=== PATIENT | female | born 1960 | race African-American/Black ===

== ENCOUNTER 2017-03-30 10:54 | Emergency (ER) | payer OTHER ==
[2017-03-30] MEDS ORDERED: ONDANSETRON 4 MG/2 ML VIAL IVPUSH ONE ×2 (11:12→13:21)
[2017-03-30] MEDS ORDERED: SODIUM CHLORIDE 1,000 ML IV STA ×2 (11:22→13:21)
[2017-03-30 11:28] VITALS: BMI 19.3
--- NOTE | 2017-03-30 11:36 | PDOC ---
History of Present Illness - General Chief Complaint: Nausea/Vomiting Stated Complaint: VOMITING Time Seen by Provider: 03/30/17 11:11 History Source: Patient - History of Present Illness Timing/Duration: reports: other (last night) Abdominal Pain Onset Location: reports: generalized abdomen Past History - Past Medical History Allergies/Adverse Reactions: Allergies Allergy/AdvReac Type Severity Reaction Status Date / Time ibuprofen [From Motrin] Allergy Verified 03/30/17 11:26 Home Medications: Ambulatory Orders Ondansetron HCl [Zofran] 4 mg PO Q8H #15 tablet 03/30/17 Cancer: Yes (lung stage 3 on remission.) COPD: No - Suicide/Smoking/Psychosocial Hx Smoking History: Never smoked Have you smoked in the past 12 months: No Information on smoking cessation initiated: No Hx Alcohol Use: No Drug/Substance Use Hx: Yes (marijuana) Substance Use Type: Marijuana Review of Systems - Review of Systems Constitutional: No: Chills, Fever ABD/GI: Yes: Diarrhea, Nausea, Vomiting, Abdominal cramping : No: Dysuria *Physical Exam - Vital Signs Last Vital Signs Temp Pulse Resp BP Pulse Ox 97.5 F L 95 H 18 172/87 100 03/30/17 10:54 03/30/17 10:54 03/30/17 10:54 03/30/17 10:54 03/30/17 10:54 - Physical Exam General Appearance: Yes: Appropriately Dressed, Moderate Distress HEENT: positive: Normal Voice Neck: positive: Supple Respiratory/Chest: positive: Lungs Clear, Normal Breath Sounds. negative: Respiratory Distress Cardiovascular: positive: Regular Rate, S1, S2 Gastrointestinal/Abdominal: positive: Tender (poorly localized tenderness on exam) Musculoskeletal: negative: CVA Tenderness Integumentary: positive: Dry, Warm Neurologic: positive: Fully Oriented, Alert, Normal Mood/Affect ED Treatment Course - LABORATORY CBC & Chemistry Diagram: 03/30/17 12:05 03/30/17 12:05 Medical Decision Making - Medical Decision Making 03/30/17 11:30 56 yo F, h/o lung ca, s/p chemo/xrt 4 years ago, smokes marijuana frequently, here w/ intractable n/v since last night. Also c/o diffuse abd pain and several e/o soft, non-bloody stools. No f/c. States she has had similar episodes in the past and was told her potassium was low as per pt. Denies excessive ETOH use See exam ? cyclical n/v (fede given cannibus use) vs gastroenteritis (given diarrhea) vs pancreatitis vs biliary disease, less likely divertiticulitis or renal colic Appears uncomfortable and dry on exam -zofran -IVF -labs -?imaging -reassess 03/30/17 11:36 03/30/17 13:25 K 3.1, will replete. Rest of labs unremarkable. Pt continues to c/o n/v, will continue to manage symptoms in ED 03/30/17 14:55 Pt appears to be sleeping comfortably as I approach stretcher, but begins to moan and c/o not feeling well and being nauseous when aware of my presence. Abd non-tender on re-eval. Reglan in progress 03/30/17 15:20 Pt pulled out IV and requesting food and transport home. *DC/Admit/Observation/Transfer Diagnosis at time of Disposition: Nausea & vomiting Qualifiers: Vomiting type: unspecified Vomiting Intractability: non-intractable Qualified Code(s): R11.2 - Nausea with vomiting, unspecified - Discharge Dispostion Disposition: HOME Condition at time of disposition: Improved - Prescriptions Prescriptions: Ondansetron HCl [Zofran] 4 mg PO Q8H #15 tablet - Referrals - Patient Instructions Printed Discharge Instructions: DI for Vomiting -- Adult Additional Instructions: Consider cessation of cannibus as this may be the cause of your symptoms Rest and maintain adequate hydration Please follow up with your PMD - Post Discharge Activity
[2017-03-30 12:15] LABS: BASOPHIL 0.4 % (0-2.0); MCH 29.7 pg (25.7-33.7); MCHC 33.7 g/dl (32.0-36.0); MEAN CELL VOLUME 88.2 fl (80-96); MEAN PLT VOLUME 8.1 fl (7.5-11.1); NEUTROPHILS 89.6 % (42.8-82.8); PLATELET COUNT 300 K/MM3 (134-434); RDW 14.5 % (11.6-15.6); WHITE BLOOD COUNT 9.2 K/mm3 (4.0-10.0)
[2017-03-30 12:50] LABS: ALBUMIN 4.2 g/dl (3.4-5.0); ANION GAP 10 (8-16); BILIRUBIN,TOTAL 0.4 mg/dL (0.2-1.0); CALCIUM 8.8 mg/dL (8.5-10.1); CO2 24 mmol/L (21-32); CREATININE 0.7 mg/dL (0.55-1.02); GLUCOSE,RANDOM 143 mg/dL (74-106); SGOT/AST 20 U/L (15-37); SGPT/ALT 23 U/L (12-78); TOT PROT 8.5 g/dl (6.4-8.2)
[2017-03-30 12:51] LABS: ALK PHOS 119 U/L (45-117)
[2017-03-30] MEDS ORDERED: POTASSIUM CHLORIDE ORAL LIQUID 20 MEQ/15 ML PO ONE (13:07)
[2017-03-30] MEDS ORDERED: ONDANSETRON 4 MG/2 ML VIAL ONE (13:21)
[2017-03-30] MEDS ORDERED: POTASSIUM CHLORIDE TABS 20 MEQ TABLET.ER (FP) PO ONE (13:23)
[2017-03-30] MEDS ORDERED: METOCLOPRAMIDE HCL INJECTION 10 MG/2 ML VIAL IVPB ONE (14:55)
[2017-03-30] MEDS ORDERED: LIDOCAINE HCL 1%, 10 MG/ML (20ML VIAL) ONE (15:40)
[2017-03-30] MEDS ORDERED: ONDANSETRON 4 MG TABLET PO ONE (17:05)
[2017-03-30] MEDS ORDERED: ONDANSETRON *ODT* 4 MG TABLET ONE (17:30)
[2017-04-01 11:06] VITALS: BP 148/72; PULSE 88; TEMP 98.2
== END 2017-03-30 17:15 | disposition home or self-care (01) ==
LOC: JER 10:54
DX: R11.2 Nausea with vomiting, unspecified (principal)
CPT/HCPCS: 36415; 80053; 83690; 85025; 99283-25